=== PATIENT | female | born 2000 | race Caucasian/White ===

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

== ENCOUNTER → 2024-01-18 | Outpatient (CLI) | payer BC ==
--- NOTE | 2024-01-18 16:28 | US ---
EXAMINATION TYPE: US transvaginal DATE OF EXAM: 01/18/2024 COMPARISON: NONE CLINICAL INDICATION: Female, 23 years old with history of E28.1 OVARIAN DYSFUNCTION; History of painf ul menses and recent elevated testosterone, patient denies any other signs, symptoms, or relevant his tory at this time TECHNIQUE: Transvaginal (TV). Date of LMP: 01/12/2024 EXAM MEASUREMENTS: Uterus: 7.2 x 3.7 x 4.5 cm Endometrial Stripe: 0.2 cm Right Ovary: 2.9 x 2.6 x 2.2 cm Left Ovary: 3.8 x 2.1 x 2.7 cm 1. Uterus: Anteverted wnl 2. Endometrium: wnl 3. Right Ovary: wnl 4. Left Ovary: wnl Spectral, color and waveform doppler imaging shows good arterial and venous flow within the ovaries ; there is no evidence for ovarian torsion. 5. Bilateral Adnexa: wnl 6. Posterior cul-de-sac: wnl IMPRESSION: 1. Endometrium within normal limits. 2. No evidence for mass. 3. No evidence for acute process.
== END | disposition home or self-care (01) ==
LOC: RADUSWWP 14:45
PROVIDERS: ATTEND Family Medicine
DX: E28.1 Androgen excess (principal)
CPT/HCPCS: 76830; 93975